=== PATIENT | female | born 1985 | race Caucasian/White ===

== ENCOUNTER 2018-04-06 17:52 | Emergency (ER) | payer BC, OTHER ==
[2018-04-06 17:58] VITALS: BMI 26.6
[2018-04-06] MEDS ORDERED: Sodium Chloride 0.9% 1,000 ML IV STA (18:16)
--- NOTE | 2018-04-06 18:23 | ED PDOC ---
Arrival/HPI - General Historian: Patient - History of Present Illness Narrative History of Present Illness (Text): 04/06/18 18:19 33 y/o female, no significant pmh, nkda, on control, c/o lt. sided chest/shoulder blade pain started last night (over 24 hours) with no fall or trauma. Aching pain, aggravated by movement, stated that she has pain when moving around, associated with deep breath, no pain medication taken at home, no night sweat, no rash, no dizziness, no change in vision, no leg or calf swelling/pain, no palpitation, no night sweat, no other medical or psychological complaints. <Jeromy Shirley - Last Filed: 04/06/18 19:51> <Jeanne Pritchett PA-C - Last Filed: 04/06/18 22:42> - General Time Seen by Provider: 04/06/18 18:11 Past Medical History - Provider Review Nursing Documentation Reviewed: Yes - Tetanus Immunization Tetanus Immunization: Unknown - Pulmonary Hx Bronchitis: Yes - Psychiatric Hx Depression: No Hx Emotional Abuse: No Hx Physical Abuse: No Hx Substance Use: No - Past Surgical History Past Surgical History: No Previous - Suicidal Assessment Feels Threatened In Home Enviroment: No <Jeromy Shirley - Last Filed: 04/06/18 19:51> Family/Social History - Physician Review Nursing Documentation Reviewed: Yes Family/Social History: Unknown Family HX Hx Alcohol Use: No Hx Substance Use: No <Jeromy Shirley - Last Filed: 04/06/18 19:51> Allergies/Home Meds <Jeromy Shirley - Last Filed: 04/06/18 19:51> <Jeanne Pritchett PA-C - Last Filed: 04/06/18 22:42> Allergies/Adverse Reactions: Allergies No Known Allergies Allergy (Verified 11/22/12 22:09) Review of Systems - Review of Systems Constitutional: absent: Fatigue, Fevers Eyes: absent: Vision Changes ENT: absent: Hearing Changes Respiratory: absent: SOB, Cough Cardiovascular: Chest Pain Gastrointestinal: absent: Abdominal Pain, Diarrhea, Nausea, Vomiting Musculoskeletal: Myalgias. absent: Arthralgias, Back Pain, Neck Pain, Joint Swelling Skin: absent: Rash, Pruritis Neurological: absent: Headache, Dizziness Psychiatric: absent: Anxiety, Depression, Suicidal Ideation <Jeromy Shirley Q - Last Filed: 04/06/18 19:51> Physical Exam - Systems Exam Head: Present: Atraumatic, Normocephalic Pupils: Present: PERRL Extroacular Muscles: Present: EOMI Conjunctiva: Present: Normal Mouth: Present: Moist Mucous Membranes Neck: Present: Normal Range of Motion Respiratory/Chest: Present: Clear to Auscultation, Good Air Exchange. No: Respiratory Distress, Accessory Muscle Use Cardiovascular: Present: Regular Rate and Rhythm, Normal S1, S2. No: Murmurs Abdomen: No: Tenderness, Distention, Peritoneal Signs Back: Present: Normal Inspection Upper Extremity: Present: Normal Inspection, Normal ROM, NORMAL PULSES, Cap[place] ed[place] Refill < 2s, Other (LUE: +ttp on the lt. trapezius muscle region and pectoralis major muscle region). No: Cyanosis, Edema, Deformity Lower Extremity: Present: Normal Inspection, NORMAL PULSES, Normal ROM, Neurovascularly Intact, Capillary Refill < 2 s. No: Edema, Deformity Neurological: Present: GCS=15, CN II-XII Intact, Speech Normal, Motor Func Grossly Intact, Gait Normal, Memory Normal Skin: Present: Warm, Dry, Normal Color. No: Rashes Psychiatric: Present: Alert, Oriented x 3, Normal Insight, Normal Concentration <Jeroym Shirley Q - Last Filed: 04/06/18 19:51> Vital Signs Temp Pulse Resp BP Pulse Ox 04/06/18 18:25 98.3 F 67 17 103/64 95 04/06/18 18:20 98.3 F 67 17 95 <Jeanne Pritchett PA-C - Last Filed: 04/06/18 22:42> Medical Decision Making ED Course and Treatment: 04/06/18 18:22 -Labs -EKG -CXR -IV toradol and fluid -Observe and reassess 04/06/18 19:45 -Urine hcg is negative -CXR show no active disease -EKG: NSR @ 64 BPM, no ST elevation or depression, no T wave inversion -Labs show no acute findings -Trop is negative -Dimer is 626, CTA ordered -Pt.'s lt. shoulder/chest pain improved with IV toradol. -Case discussed and endorsed to the incoming МАРИЯ Pritchett, she will follow up with the CTA - Lab Interpretations Interpretation: No sign. chg./baseline - RAD Interpretation Radiology Orders: 04/06/18 18:16 CHEST PORTABLE [RAD] Stat - Medication Orders Current Medication Orders: Sodium Chloride (Sodium Chloride 0.9%) 1,000 mls @ 999 mls/hr IV .Q1H1M STA Stop: 04/06/18 19:16 <Jeromy Shirley Q - Last Filed: 04/06/18 19:51> ED Course and Treatment: 04/06/18 21:30 CTA chest : No consolidation or atelectasis or pleural effusion. No pulmonary embolic disease to the main pulmonary arteries with her main branches. Clinical correlation advised. As read by Hoang Carrera MD, 04/06/182052. On reevaluation, patient reports no chest pain or SOB. On exam, patient remains awake alert and oriented 3 in no acute distress. Diagnostic results d/w the patient. Advised to follow up with primary care physician or referral provided in 1-2 days without fail. Advised to take medication as prescribed. Return to the emergency room at any time for any new or worsening symptoms. Patient states she fully agrees with and understands discharge instructions. States that she agrees with the plan and disposition. Verbalized and repeated discharge instructions and plan. I have given the patient opportunity to ask any additional questions. - Lab Interpretations Lab Results: 04/06/18 18:40 04/06/18 18:40 Lab Results 04/06/18 18:40: D-Dimer, Quantitative 626 H 04/06/18 18:40: WBC 10.8, RBC 4.72, Hgb 13.6, Hct 39.7, MCV 84.1, MCH 28.8, MCHC 34.3, RDW 13.3, Plt Count 251, MPV 10.9, Gran % 52.4, Lymph % (Auto) 41.8 H, [place] % (Auto) 4.7, Eos % (Auto) 0.6 L, Baso % (Auto) 0.5, Gran # 5.68, Lymph # (Auto) 4.5 H, [place] # (Auto) 0.5, Eos # (Auto) 0.1, Baso # (Auto) 0.05 04/06/18 18:40: Sodium 138, Potassium 3.7, Chloride 104, Carbon Dioxide 24, Anion Gap 14, BUN 9, Creatinine 0.6 L, Est GFR ( Amer) > 60, Est GFR (Non-Af Amer) > 60, Random Glucose 82, Calcium 9.4, Magnesium 2.1, Total Bilirubin 0.8, AST 23, ALT 17, Alkaline Phosphatase 54, Lactate Dehydrogenase 385, Total Creatine Kinase 36, Troponin I < 0.01, Total Protein 8.0, Albumin 4.6, Globulin 3.5, Albumin/Globulin Ratio 1.3 - RAD Interpretation Radiology Orders: 04/06/18 19:16 ANGIO CHEST PE PROTOCOL [CT] Stat 04/06/18 19:30 CHEST PORTABLE [RAD] Stat - Medication Orders Current Medication Orders: Discontinued Medications Sodium Chloride (Sodium Chloride 0.9%) 1,000 mls @ 999 mls/hr IV .Q1H1M STA Stop: 04/06/18 19:16 Last Admin: 04/06/18 18:32 Dose: 999 mls/hr eMAR Start Stop Document 04/06/18 18:32 SRE (Rec: 04/06/18 18:32 SRE [id number]) Intravenous Solution Start Date 04/06/18 Start Time 18:25 End Date 04/06/18 End time 19:25 Total Infusion Time 60 Ketorolac Tromethamine (Toradol) 30 mg IVP STAT STA Stop: 04/06/18 18:57 Last Admin: 04/06/18 19:04 Dose: 30 mg MAR Pain Assessment Document 04/06/18 19:04 TENNIS INSTRUCTOR (Rec: 04/06/18 19:05 TENNIS INSTRUCTOR [facility] [id number] Pain Reassessment Is this a pain reassessment? Yes Sleep Is patient sleeping during reassessment? No Presence of Pain Presence of Pain Yes Pain Scale Used Protocol: PSCALES Pain Scale Used Numeric Location Left, Right or Bilateral Left Upper or Lower Upper Pain Location Body Site Back IVP Administration Document 04/06/18 19:04 TENNIS INSTRUCTOR (Rec: 04/06/18 19:05 TENNIS INSTRUCTOR [facility] [id number]) Charges for Administration # of IVP Administrations 1 <Jeanne Pritchett PA-C - Last Filed: 04/06/18 22:42> - PA / PELLETIZER TENDER / Resident Statement / has reviewed & agrees with the documentation as recorded. <Jeanne Pritchett PA-C - Last Filed: 04/06/18 22:42> Disposition/Present on Arrival - Present on Arrival History of DVT/PE: No History of Uncontrolled Diabetes: No Urinary Catheter: No History Surgical Site Infection Following: None <Jeromy Shirley - Last Filed: 04/06/18 19:51> - Present on Arrival Any Indicators Present on Arrival: No History of DVT/PE: No History of Uncontrolled Diabetes: No Urinary Catheter: No History of Decub. Ulcer: No - Disposition Have Diagnosis and Disposition been Completed?: Yes Disposition Time: 21:30 Patient Plan: Discharge <Jeanne Pritchett PA-C - Last Filed: 04/06/18 22:42> - Disposition Diagnosis: Chest pain, Musculoskeletal pain Disposition: HOME/ ROUTINE Patient Problems: Current Active Problems Problem Status Onset Chest pain Acute Musculoskeletal pain Acute Condition: STABLE Discharge Instructions (ExitCare): Chest Pain That Is Not Caused by the Heart (DC), Muscle and Bone Pain (DC) Additional Instructions: Thank you for letting us take care of you today. You were treated for chest pain, likely musculoskeletal pain. The emergency medical care you received today was directed at your acute symptoms. If you were prescribed any medication, please fill it and take as directed. It may take several days for your symptoms to resolve. Return to the Emergency Department if your symptoms worsen, do not improve, or if you have any other problems. Please contact your doctor or referral provided in 2 days for re-evaluation and follow up. Bring any paperwork you were given at discharge with you along with any medications you are taking to your follow up visit. Our treatment cannot replace ongoing medical care by a primary care provider (PCP) outside of the emergency department. Thank you for allowing the [facility] team to be part of your care today. If you had an X-Ray or CT scan: A Radiologist will review the ED reading if any change in treatment is needed we will contact you. Prescriptions: Cyclobenzaprine [Cyclobenzaprine HCl] 10 mg PO TID PRN #15 tab PRN Reason: Muscle Spasm Naproxen 500 mg PO BID PRN #20 tablet PRN Reason: Pain, Moderate (4-7) Referrals: Matt Claire MD [Staff Provider] - Follow up with primary Forms: WORK NOTE
[2018-04-06 18:29] VITALS: TEMP 98.3
[2018-04-06 19:10] LABS: ALB/GLOB RATIO 1.3 (1.1-1.8); ALBUMIN 4.6 g/dL (3.0-4.8); ALT/SGPT 17 U/L (7-56); AST/SGOT 23 U/L (14-36); BLOOD UREA NITROGEN 9 mg/dL (7-21); CALCIUM 9.4 mg/dL (8.4-10.5); GFR NON-AFRICAN AMERICAN > 60
[2018-04-06 19:12] LABS: BASO # 0.05 K/mm3 (0.0-2.0); BASO % 0.5 % (0.0-3.0); EOS # 0.1 (0.0-0.7); EOS % 0.6 % (1.5-5.0); GRAN # 5.68 (1.4-6.5); GRAN % 52.4 % (50.0-68.0); HEMOGLOBIN 13.6 g/dL (12.0-16.0); LYMPH # 4.5 (1.2-3.4); LYMPH % 41.8 % (22.0-35.0); MEAN CELL VOLUME 84.1 fl (80.0-105.0); MEAN CORPUSCULAR HEMOGLOBIN 28.8 pg (25.0-35.0); MEAN CORPUSCULAR HGB CONC 34.3 g/dl (31.0-37.0); MEAN PLATELET VOLUME 10.9 fl (7.0-11.0); MONO # 0.5 (0.1-0.6); MONO % 4.7 % (1.0-6.0); RBC 4.72 10^6/uL (3.5-6.1); RED CELL DISTRIBUTION WIDTH 13.3 % (11.5-14.5); WHITE BLOOD COUNT 10.8 10^3/ul (4.5-11.0)
[2018-04-06 19:22] LABS: TROPONIN I < 0.01 ng/mL
[2018-04-06] MEDS ORDERED: Iodixanol 320 MG/ML 100 ML BOTTLE IV ONE (19:54)
[2018-04-06 23:20] VITALS: BP 110/68; PULSE 72; RESP 18; O2SAT 97
--- NOTE | 2018-04-07 08:14 | CT ---
Date of service: 04/06/2018 PROCEDURE: CT Chest with contrast (Pulmonary Angiogram) HISTORY: elevated dimer, r/o pe COMPARISON: None available. TECHNIQUE: Axial computed tomography images were obtained of the chest in the pulmonary arterial phase of enhancement. Coronal and sagittal reformatted images were created and reviewed. Intravenous contrast dose: 100 cc Omnipaque 300. Mean Hounsfield value in the main pulmonary artery: 341.50 Radiation dose: Total exam DLP = 342.35 mGy-cm. This CT exam was performed using one or more of the following dose reduction techniques: Automated exposure control, adjustment of the mA and/or kV according to patient size, and/or use of iterative reconstruction technique. FINDINGS: PULMONARY ARTERIES: Unremarkable. No pulmonary embolism. AORTA: No acute findings. No thoracic aortic aneurysm. LUNGS: Unremarkable. No nodule, mass or pulmonary consolidation. PLEURAL SPACES: Unremarkable. No effusion or pneumothorax. HEART: Unremarkable. No cardiomegaly. No significant pericardial effusion. LYMPH NODES: No lymphadenopathy. BONES, CHEST WALL: Unremarkable. No fracture or destructive lesion OTHER FINDINGS: Unremarkable. IMPRESSION: Unremarkable CT pulmonary angiogram. No pulmonary embolus. Concordant results (preliminary interpretation) provided by [facility]. Procedure Completed: 20:21 Preliminary Report: Dictated and Authenticated: 20:53. Final Interpretation: 08:12.
--- NOTE | 2018-04-07 08:59 | RAD ---
Date of service: 04/06/2018 HISTORY: medical clearance COMPARISON: No prior. FINDINGS: LUNGS: No active pulmonary disease. PLEURA: No significant pleural effusion identified, no pneumothorax apparent. CARDIOVASCULAR: Normal. OSSEOUS STRUCTURES: No significant abnormalities. VISUALIZED UPPER ABDOMEN: Normal. OTHER FINDINGS: None. IMPRESSION: No active disease. Concordant results with the preliminary interpretation rendered by the emergency department physician procedure.
--- NOTE | 2018-04-07 16:41 | CARD ---
APPROVED REPORT Date of service: 04/06/2018 EKG Measurement Heart [id number] <Conclusion> Normal sinus rhythm Normal ECG
== END 2018-04-06 21:10 | disposition home or self-care (01) ==
LOC: ED 17:52
DX: R07.9 Chest pain, unspecified (principal); M79.18 Myalgia, other site
CPT/HCPCS: 71045; 71275; 80053; 82550; 83615; 83735; 84484; 85025; 85378; 93005; 96361; 96374; 99283; J1885; J7030; Q9967

== ENCOUNTER 2018-08-17 15:55 | Emergency (ER) | payer OTHER ==
--- NOTE | 2018-08-17 15:57 | ED PDOC ---
Arrival/HPI - General Chief Complaint: Abdominal Pain Time Seen by Provider: 08/17/18 15:56 Historian: Patient - History of Present Illness Narrative History of Present Illness (Text): 08/17/18 17:12 33 y/o female with no significant PMH presents to the ED c/o abdominal pain x 14 hours. Describes pain as crampy, located in RLQ and LLQ. Associated chills and brown watery diarrhea, 4 episodes today. Also states she had a few episodes of rectal bleeding. She noticed a few drops of bright red blood on the toilet tissue and in the toilet bowl when having BM. Currently menstruating. Was seen this afternoon at [facility] and advised to come to ED for further evaluation. Of note, patient recently 1 month ago had endoscopy and colonoscopy with her GI doctor secondary to a history of constipation which was significant for hemorrhoids but otherwise normal. Unsure of the name of her manager strategy. Denies chest pain, SOB, cough, vomiting, nausea, urinary symptoms, back pain, vaginal discharge, pelvic pain, or any other associated complaints. Past Medical History - Provider Review Nursing Documentation Reviewed: Yes - Tetanus Immunization Tetanus Immunization: Unknown - Reproductive Currently : No - Cardiac Hx Cardiac Disorders: No - Pulmonary Hx Bronchitis: Yes - Neurological Hx Neurological Disorder: No - HEENT Hx HEENT Disorder: No - Renal Hx Renal Disorder: No - Endocrine/Metabolic Hx Endocrine Disorders: No - Hematological/Oncological Hx Blood Disorders: No - Integumentary Hx Dermatological Disorder: No - Musculoskeletal/Rheumatological Hx Musculoskeletal Disorders: No - Gastrointestinal Hx Gastrointestinal Disorders: No - Genitourinary/Gynecological Hx Genitourinary Disorders: No - Psychiatric Hx Depression: No Hx Emotional Abuse: No Hx Physical Abuse: No Hx Substance Use: No - Past Surgical History Past Surgical History: No Previous - Suicidal Assessment Feels Threatened In Home Enviroment: No Family/Social History - Physician Review Nursing Documentation Reviewed: Yes Family/Social History: No Known Family HX Smoking Status: Former Smoker Hx Alcohol Use: No Hx Substance Use: No Allergies/Home Meds Allergies/Adverse Reactions: Allergies No Known Allergies Allergy (Verified 08/17/18 15:59) Review of Systems - Physician Review All systems were reviewed & negative as marked: Yes - Review of Systems Constitutional: Fevers (subjective fever and chills) Eyes: Normal. absent: Vision Changes ENT: Normal. absent: Sore Throat, Sinus Congestion Respiratory: Normal. absent: SOB, Cough Cardiovascular: Normal. absent: Chest Pain, Palpitations Gastrointestinal: Abdominal Pain, Diarrhea. absent: Nausea, Vomiting, Appetite Changes Genitourinary Female: Vaginal Bleeding (menstruation). absent: Dysuria, Frequency, Hematuria, Urine Output Changes, Vaginal Discharge Musculoskeletal: Normal. absent: Back Pain, Neck Pain Skin: Normal. absent: Rash Neurological: Normal. absent: Headache, Dizziness, Focal Weakness, Disequilibrium Endocrine: Normal Hemo/Lymphatic: Normal Psychiatric: Normal Physical Exam Vital Signs Reviewed: Yes Temperature: Afebrile Blood Pressure: Normal Pulse: Regular Respiratory Rate: Normal Appearance: Positive for: Well-Appearing, Non-Toxic, Comfortable Pain Distress: None Mental Status: Positive for: Alert and Oriented X 3 - Systems Exam Head: Present: Atraumatic, Normocephalic Pupils: Present: PERRL Extroacular Muscles: Present: EOMI Conjunctiva: Present: Normal Ears: Present: Normal Mouth: Present: Moist Mucous Membranes Pharnyx: Present: Normal. No: ERYTHEMA, EXUDATE, TONSILS ENLARGED Nose (External): Present: Atraumatic Nose (Internal): Present: Normal Inspection Neck: Present: Normal Range of Motion. No: Meningeal Signs, MIDLINE TENDERNESS, Paraspinal Tenderness Respiratory/Chest: Present: Clear to Auscultation, Good Air Exchange. No: Respiratory Distress, Accessory Muscle Use Cardiovascular: Present: Regular Rate and Rhythm, Normal S1, S2, Peripheal Pulses Present. No: Murmurs Abdomen: Present: Tenderness (RLQ, LLQ, suprapubic), Normal Bowel Sounds. No: Distention, Peritoneal Signs, Rebound, Guarding Back: Present: Normal Inspection. No: CVA Tenderness, Midline Tenderness, Paraspinal Tenderness Upper Extremity: Present: Normal Inspection, Normal ROM, NORMAL PULSES, Neurovascularly Intact, Capillary Refill < 2s. No: Cyanosis, Edema, Temperature Abnormalties Lower Extremity: Present: Normal Inspection, NORMAL PULSES, Normal ROM, Neurovascularly Intact, Capillary Refill < 2 s. No: Edema, Temperature Abnormalties Neurological: Present: GCS=15, CN II-XII Intact, Speech Normal, Motor Func G rossly Intact, Normal Sensory Function, Gait Normal Skin: Present: Warm, Dry, Normal Color. No: Rashes Psychiatric: Present: Alert, Oriented x 3, Normal Insight, Normal Concentration, Normal Affect, Normal Mood Medical Decision Making ED Course and Treatment: Initial Plan: * CBC, CMP * Lipase * UA * Transvaginal US * CT Abd/Pelvis with PO and IV contrast * IVF * Pepcid * Tylenol 17:29 Labwork reviewed CBC with left shift but no leukocytosis; no anemia CMP with mild hypokalemia, repleted with 20mEq KCl UA with blood, pt currently menstruating 18:30 Rectal exam reveals small external non-thrombosed hemorrhoid at 6 o'clock position. Normal rectal tone, no masses, no tenderness. No stool in rectal vault. (+) occult blood, no gross blood or melena. Chaperoned by nurse Citlaly. 18:32 Patient reports improvement of pain with medications Pelvis ultrasound normal, IUD in place 20:22 CT Abd/Pelvis negative for acute pathology. Pt continues to be well appearing, no complaints of pain. Abdomen soft, nontender, no gross bloody bowel movements in ED. No vomiting. No anemia or leukocytosis. Negative imaging. Case and diagnostic testing results reviewed with Dr. Singh, who agrees with disposition of discharge home with GI and PMD followup. Pt states she will followup as instructed. Diagnostic testing results and plan of care discussed with patient. Strict instructions given regarding prescription use, importance of followup, and signs/symptoms to return to ER including heavy bleeding, worsening abdominal pain, vomiting, or any other new/worsening symptoms. Pt verbalized understanding of discussion. Patient is A&Ox3, ambulating with steady gait, with vital signs stable for discharge. - Lab Interpretations Lab Results: 08/17/18 16:50 08/17/18 16:50 Lab Results 08/17/18 17:04: Urine Color Straw, Urine Appearance Clear, Urine pH 6.0, Ur Specific [place] 1.020, Urine Protein Negative, Urine Glucose (UA) Negative, Urine Ketones Negative, Urine Blood Moderate H, Urine Nitrate Negative, Urine Bilirubin Negative, Urine Urobilinogen 0.2, Ur Leukocyte Esterase Negative, Urine RBC 20 - 25 H, Urine WBC 2 - 5, Ur Epithelial Cells 3 - 4 08/17/18 16:50: Sodium 139, Potassium 3.5 L, Chloride 103, Carbon Dioxide 26, Anion Gap 13, BUN 8, Creatinine 0.6 L, Est GFR ( Amer) > 60, Est GFR (Non-Af Amer) > 60, Random Glucose 90, Calcium 9.1, Magnesium 2.1, Total Bilirubin 1.0, AST 26, ALT 20, Alkaline Phosphatase 62, Total Protein 8.4 H, Albumin 4.7, Globulin 3.7, Albumin/Globulin Ratio 1.3, Lipase 102 08/17/18 16:50: PT 11.6, INR 1.05, APTT 29.3 08/17/18 16:50: WBC 10.6, RBC 4.69, Hgb 13.5, Hct 40.0, MCV 85.3, MCH 28.8, MCHC 33.8, RDW 13.5, Plt Count 274, MPV 11.3 H, Neut % (Auto) 74.6 H, Lymph % (Auto) 16.6 L, [place] % (Auto) 7.7 H, Eos % (Auto) 0.6 L, Baso % (Auto) 0.5, Lymph # (Auto) 1.8, [place] # (Auto) 0.8 H, Eos # (Auto) 0.1, Baso # (Auto) 0.05, Absolute Neuts (auto) 7.90 H I have reviewed the lab results: Yes - RAD Interpretation Narrative RAD Interpretations (Text): 08/17/18 18:00 Pelvic US: HISTORY: Lower abdominal pain. LMP 08/12/2018. Surgical history of IUD placement. COMPARISON: None available. TECHNIQUE: Transabdominal only. Real-time technique with 2D, duplex and color Doppler FINDINGS: UTERUS: Measures 4.1 x 4.8 x 10.7 cm. Normal in size and appearance. No fibroid or other mass lesion seen. ENDOMETRIUM: Precise measurement of the endometrial thickness is not possible based on technique and the presence of an IUD which appears to be in satisfactory position. CERVIX: No cervical abnormality identified. RIGHT OVARY: Measures 2 x 3.4 x 3.8 cm. No solid mass. Normal flow. LEFT OVARY: Measures 1.5 x 2.9 x 4.1 cm. No solid mass. Normal flow. FREE FLUID: No significant free fluid noted. OTHER FINDINGS: None. IMPRESSION: Satisfactory position, as visualized, of the IUD. Unremarkable uterus and adnexa as visualized. CT Abd/Pelvis: FINDINGS: LUNG BASES: The lung bases appear clear. No pleural effusions are seen. LIVER: Unremarkable. GALLBLADDER AND BILE DUCTS: The gallbladder appears within normal limits. No radioopaque gallstones are seen. No biliary ductal dilatation is evident. PANCREAS: Unremarkable. SPLEEN: Unremarkable. ADRENAL GLANDS: Unremarkable. KIDNEYS, URETERS, AND BLADDER: The kidneys appear within normal limits. There is no hydronephrosis or hydroureter. No urinary calculi are seen. There is an intrauterine device in place within the endometrial cavity. STOMACH AND BOWEL: Unremarkable appearance of the stomach and bowel. No evidence of bowel obstruction. No evidence suggesting enteritis or colitis. APPENDIX: No evidence of acute appendicitis on CT examination. PERITONEUM: No free fluid. No free air. LYMPH NODES: No lymphadenopathy is evident. VASCULATURE: No evidence of abdominal aortic aneurysm. BONES: No aggressive appearing osseous lesion. No acute osseous pathology evident. IMPRESSION: No acute intra-abdominal abnormality. Intrauterine device in place within the endometrial cavity. Clinical correlation advised. Radiology Orders: 08/17/18 16:12 ABD PELVIS PO & IV CONTRAST [CT] Stat 08/17/18 16:13 PELVIS ULTRASOUND [US] Stat Cut Off Tender Glass: Radiologist Disposition/Present on Arrival - Present on Arrival Any Indicators Present on Arrival: No History of DVT/PE: No History of Uncontrolled Diabetes: No Urinary Catheter: No History Surgical Site Infection Following: None - Disposition Have Diagnosis and Disposition been Completed?: Yes Diagnosis: Hemorrhoid, Rectal bleeding, Abdominal pain Disposition: HOME/ ROUTINE Disposition Time: 20:00 Patient Plan: Discharge Condition: IMPROVED Discharge Instructions (ExitCare): Hemorrhoids, Gastrointestinal Bleeding (DC), Bloody Stools, Adult (DC) Additional Instructions: Increase fluids Pepcid every 12 hours as needed for abdominal pain Followup with primary doctor within 2 days Followup with GI doctor tomorrow Return to ER with any new/worsening symptoms Prescriptions: Famotidine [Pepcid] 20 mg PO Q12H PRN #30 tab PRN Reason: Pain, Moderate (4-7) Referrals: Jeannette Ortiz MD [Family Provider] - Follow up with primary Luis Manuel Obrien MD [Staff Provider] - Follow up with primary Forms: [employer] ([place]), WORK NOTE
[2018-08-17 15:59] VITALS: BMI 25.7
[2018-08-17 16:01] VITALS: RESP 18; TEMP 99
[2018-08-17] MEDS ORDERED: Iohexol 240 (50 ml) ONE (16:23)
[2018-08-17] MEDS ORDERED: Sodium Chloride 0.9% 1,000 ML IV STA (16:45)
[2018-08-17 17:07] LABS: ALB/GLOB RATIO 1.3 (1.1-1.8); ALBUMIN 4.7 g/dL (3.0-4.8); ALT/SGPT 20 U/L (7-56); AST/SGOT 26 U/L (14-36); BLOOD UREA NITROGEN 8 mg/dL (7-21); CALCIUM 9.1 mg/dL (8.4-10.5); GFR NON-AFRICAN AMERICAN > 60; LIPASE 102 U/L (23-300)
[2018-08-17 17:09] LABS: URINE BILIRUBIN NEGATIVE (NEGATIVE); URINE BLOOD MODERATE (NEGATIVE); URINE GLUCOSE (UA) NEGATIVE (NEGATIVE); URINE LEUKOCYTE ESTERASE NEGATIVE Leu/uL (NEGATIVE); URINE PROTEIN NEGATIVE mg/dL (<30 mg/dL); URINE UROBILINOGEN 0.2 E.U./dL (<1 E.U./dL)
[2018-08-17 17:09] LABS: BASO # 0.05 K/mm3 (0.0-2.0); BASO % 0.5 % (0.0-3.0); EOS # 0.1 (0.0-0.7); EOS % 0.6 % (1.5-5.0); HEMOGLOBIN 13.5 g/dL (12.0-16.0); LYMPH # 1.8 (1.2-3.4); LYMPH % 16.6 % (22.0-35.0); MEAN CELL VOLUME 85.3 fl (80.0-105.0); MEAN CORPUSCULAR HEMOGLOBIN 28.8 pg (25.0-35.0); MEAN CORPUSCULAR HGB CONC 33.8 g/dl (31.0-37.0); MEAN PLATELET VOLUME 11.3 fl (7.0-11.0); MONO # 0.8 (0.1-0.6); MONO % 7.7 % (1.0-6.0); RBC 4.69 10^6/uL (3.5-6.1); RED CELL DISTRIBUTION WIDTH 13.5 % (11.5-14.5); WHITE BLOOD COUNT 10.6 10^3/uL (4.5-11.0)
[2018-08-17 17:10] LABS: URINE APPEARANCE CLEAR (CLEAR); URINE COLOR STRAW (YELLOW)
[2018-08-17] MEDS ORDERED: Potassium Chloride 20 mEq ER Tab PO STA (17:11)
[2018-08-17 17:15] LABS: URINE RBC 20 - 25 /hpf (0-2)
[2018-08-17 17:18] LABS: INR 1.05; PARTIAL THROMBOPLASTIN TIME 29.3 Seconds (26.9-38.3); PROTHROMBIN TIME 11.6 SECONDS (9.4-12.5)
--- NOTE | 2018-08-17 17:46 | US ---
Date of service: 08/17/2018 HISTORY: Lower abdominal pain. LMP 08/12/2018. Surgical history of IUD placement. COMPARISON: None available. TECHNIQUE: Transabdominal only. Real-time technique with 2D, duplex and color Doppler FINDINGS: UTERUS: Measures 4.1 x 4.8 x 10.7 cm. Normal in size and appearance. No fibroid or other mass lesion seen. ENDOMETRIUM: Precise measurement of the endometrial thickness is not possible based on technique and the presence of an IUD which appears to be in satisfactory position. CERVIX: No cervical abnormality identified. RIGHT OVARY: Measures 2 x 3.4 x 3.8 cm. No solid mass. Normal flow. LEFT OVARY: Measures 1.5 x 2.9 x 4.1 cm. No solid mass. Normal flow. FREE FLUID: No significant free fluid noted. OTHER FINDINGS: None. IMPRESSION: Satisfactory position, as visualized, of the IUD. Unremarkable uterus and adnexa as visualized.
[2018-08-17] MEDS ORDERED: Iohexol 350 MG/100 ML VIAL ONE (17:59)
[2018-08-17 20:04] VITALS: BP 98/64; PULSE 68; O2SAT 99
--- NOTE | 2018-08-18 09:26 | CT ---
Date of service: 08/17/2018 PROCEDURE: CT Abdomen and Pelvis with contrast HISTORY: lower abdominal pain, rectal bleeding COMPARISON: None available. TECHNIQUE: CT scan of the abdomen and pelvis was performed after administration of intravenous contrast. Oral contrast was administered. Coronal and sagittal reformatted images were obtained. Contrast dose: 100 mL Omnipaque Radiation dose: Total exam DLP = 341.41 mGy-cm. This CT exam was performed using one or more of the following dose reduction techniques: Automated exposure control, adjustment of the mA and/or kV according to patient size, and/or use of iterative reconstruction technique. FINDINGS: LOWER THORAX: The visualized lungs are clear. LIVER: Mild hepatomegaly. Diffuse fatty liver. Normal homogeneous enhancement. No gross lesion or ductal dilatation. GALLBLADDER AND BILE DUCTS: Well distended. No calcified gallstones, wall thickening or pericholecystic fluid. PANCREAS: Normal in size with homogeneous enhancement. No gross lesion or ductal dilatation. SPLEEN: Normal in size and appearance. ADRENALS: No discrete nodule. KIDNEYS AND URETERS: Normal in size with homogeneous enhancement. No hydronephrosis. No solid mass. VASCULATURE: No aortic aneurysm. There are no aortic atherosclerotic calcifications or mural plaque present. BOWEL: The small bowel loops are normal in caliber. The ascending and transverse colon are grossly normal in appearance. There is mild circumferential mural thickening in the left hemicolon. APPENDIX: Normal appendix. PERITONEUM: No free fluid. No free air. LYMPH NODES: No enlarged lymph nodes. BLADDER: Well distended and normal in appearance. REPRODUCTIVE: The uterus is retroverted and normal in size. An IUD remains in satisfactory position. BONES: No acute fracture. Within normal limits for the patient's age. OTHER FINDINGS: None. IMPRESSION: Mild circumferential mural thickening in the left hemicolon could be related to underdistention however nonspecific acute infectious/inflammatory segmental colitis is also consideration. Clinical follow-up is advised. No bowel obstruction. A preliminary report was provided by [facility]. The final report is tagged to the PA review folder.
--- NOTE | 2018-08-18 16:34 | ED PDOC ---
ED Additional Note - Physician Additional Note Physician Additional Note: Ct of the abd/pelvis was placed into the PA review folder. I called the patient and spoke with the patient regarding the CT results. pt states her pain has completely resolved. pt was advised to follow up with GI specialist within the next 2 days and return immediately if she develops any abdominal pain, continued diarrhea, fevers, vomiting or if any other concerning symptoms develop. ct abd/pelvis FINDINGS: LOWER THORAX: The visualized lungs are clear. LIVER: Mild hepatomegaly. Diffuse fatty liver. Normal homogeneous enhancement. No gross lesion or ductal dilatation. GALLBLADDER AND BILE DUCTS: Well distended. No calcified gallstones, wall thickening or pericholecystic fluid. PANCREAS: Normal in size with homogeneous enhancement. No gross lesion or ductal dilatation. SPLEEN: Normal in size and appearance. ADRENALS: No discrete nodule. KIDNEYS AND URETERS: Normal in size with homogeneous enhancement. No hydronephrosis. No solid mass. VASCULATURE: No aortic aneurysm. There are no aortic atherosclerotic calcifications or mural plaque present. BOWEL: The small bowel loops are normal in caliber. The ascending and transverse colon are grossly normal in appearance. There is mild circumferential mural thickening in the left hemicolon. APPENDIX: Normal appendix. PERITONEUM: No free fluid. No free air. LYMPH NODES: No enlarged lymph nodes. BLADDER: Well distended and normal in appearance. REPRODUCTIVE: The uterus is retroverted and normal in size. An IUD remains in satisfactory position. BONES: No acute fracture. Within normal limits for the patient's age. OTHER FINDINGS: None. IMPRESSION: Mild circumferential mural thickening in the left hemicolon could be related to underdistention however nonspecific acute infectious/inflammatory segmental colitis is also consideration. Clinical follow-up is advised. No bowel obstruction. A preliminary report was provided by [facility]. The final report is tagged to the PA review folder.
== END 2018-08-17 20:27 | disposition home or self-care (01) ==
LOC: ED 15:55
DX: K62.5 Hemorrhage of anus and rectum (principal); K64.9 Unspecified hemorrhoids; R10.30 Lower abdominal pain, unspecified; Z87.891 Personal history of nicotine dependence
CPT/HCPCS: 74177; 76856; 80053; 81001; 81025; 83690; 83735; 85025; 85610; 85730; 87086; 96374; 99285; J7030; Q9966; Q9967